=== PATIENT | female | born 1975 | race Caucasian/White ===

== ENCOUNTER 2020-03-22 14:26 | Emergency (ER) | payer OTHER, MEDICAID ==
[~2020-03-22] VITALS: Ht 157.5 cm; Wt 98.9 kg
[2020-03-22 14:36] VITALS: Ht 157.5 cm; Wt 98.9 kg
[2020-03-22 18:02] VITALS: BP 127/78
== END 2020-03-22 18:02 | disposition home or self-care (01) ==
LOC: ED 14:26
DX: S62.304A Unspecified fracture of fourth metacarpal bone, right hand, initial encounter for closed fracture (principal); I10 Essential (primary) hypertension; E11.9 Type 2 diabetes mellitus without complications; E05.90 Thyrotoxicosis, unspecified without thyrotoxic crisis or storm; V49.9XXA Car occupant (driver) (passenger) injured in unspecified traffic accident, initial encounter; Y93.89 Activity, other specified; Y92.89 Other specified places as the place of occurrence of the external cause; Y99.8 Other external cause status
CPT/HCPCS: J1885; J2270; J2405; Q0092